=== PATIENT | female | born 1965 | race Caucasian/White ===

== ENCOUNTER 2019-02-13 12:44 | Emergency (ER) | payer OTHER ==
[~2019-02-13] VITALS: Ht 157.5 cm; Wt 63.5 kg
[2019-02-13] MEDS ORDERED: BENICAR20 MG (13:12)
[2019-02-13] MEDS ORDERED: LOSARTAN POTASS25 MG (13:12)
== END 2019-02-13 16:18 | disposition home or self-care (01) ==
LOC: ER 12:44
DX: R05 Cough (principal); T59.894A Toxic effect of other specified gases, fumes and vapors, undetermined, initial encounter; Y92.813 Airplane as the place of occurrence of the external cause